=== PATIENT | male | born 1960 | race Caucasian/White ===

== ENCOUNTER → 2016-12-14 | Outpatient (CLI) | payer OTHER ==
[~2016-12-14] MED LIST: ACIDOPHILUS PROB1 MG PO; CASC450C PO; CLON0.5T60 PO; FURO20TA4 PO; LEVO500T69 PO; LVT.088T PO; LVT.1T PO; MELO-195 PO; MULT-974 PO; MUPI1OIN5 NS; OXYC-12 PO; PHEN37.53 PO; POTA10CA43 PO; SULF-222 PO; SULF1TAB38 PO; TEST90SO TD; TOPI25TA2 PO; TRAM50TA2 PO; [UNRECOGNIZED DRUG - CODE] TOP
--- NOTE | 2016-12-14 19:01 | Diagnostic Imaging Report ---
Three views of the left heel. INDICATION: Heel pain. FINDINGS: There is no fracture or dislocation identified. No significant spur formation is seen. No radiopaque foreign body. The soft tissues appear unremarkable. IMPRESSION: Unremarkable exam. Dictated by: Dictated on workstation # [id number]
== END ==
LOC: RAD 13:00
PROVIDERS: ATTEND Nurse Practitioner Family
DX: M25.572 Pain in left ankle and joints of left foot (principal)
CPT/HCPCS: 73650

== ENCOUNTER 2017-08-14 08:39 | Day surgery (SDC) | payer OTHER ==
[~2017-08-14] VITALS: Ht 182.9 cm; Wt 115.7 kg
[~2017-08-14 08:39] MED LIST changes: +AROM1FL. PO; +BUSP5TAB59 PO; +DIPH25CA79 PO; +LAMO150T3 PO; +LEVO100T7 PO; +LIRA3PEN SQ; +MULT-35 PO; +PHEN-483 PO
[2017-08-14] MEDS ORDERED: NS IV 500 ML 500 ML IV ONE (09:00)
[2017-08-14] MEDS ORDERED: fentaNYL INJECTION 100 MCG/2 ML AMP ONE (09:22)
[2017-08-14] MEDS ORDERED: MIDAZOLAM 2 MG/2 ML (VERSED) VIAL ONE ×4 (09:22)
[2017-08-14] MEDS ORDERED: NS IV 500 ML 500 ML ONE (09:25)
--- NOTE | 2017-08-14 09:34 | History & Physicial ---
History of Present Illness History of Present Illness Reason for visit/HPI to undergo screening colonoscopy. Denies any family history of colon cancer. Date of Admission 08/14/17 Date Seen by Provider: Aug 14, 2017 Time Seen by Provider: 08:55 I consulted on this patient on 08/14/17 09:32 Attending Physician Antoine Sahni MD Admitting Physician Kofi Waite DO Consult Allergies and Home Medications Allergies Coded Allergies: amoxicillin (Verified Allergy, Severe, ANAPHYLAXIS, 08/09/17) hydrocodone (Verified Adverse Reaction, Intermediate, "LOOPY", 08/09/17) Home Medications Aromatic Cascara Fluid Extract 1 Ml Fl.extract, 450 MG PO HS, (Reported) Buspirone HCl 5 Mg Tablet, 5 MG PO BID, (Reported) Diphenhydramine HCl 25 Mg Capsule, 25 MG PO HS, (Reported) Lamotrigine 150 Mg Tablet, 150 MG PO HS, (Reported) Levothyroxine Sodium 100 Mcg Tablet, 100 MCG PO DAILY, (Reported) Liraglutide 3 Mg/0.5 Ml Pen.injctr, 3 MG SQ DAILY, (Reported) Multivitamin 1 Each Tablet, 1 EACH PO DAILY, (Reported) Phentermine HCl 37.5 Mg Capsule, 37.5 MG PO DAILY, (Reported) Tramadol HCl 50 Mg Tablet, 50 MG PO BID, (Reported) Patient Home Medication List Home Medication List Reviewed: Yes Past Fyskvif-Omuing-Epkclu Hx Patient Social History Marrital Status: Employed/Student: self-employed Recent Foreign Travel: No Contact w/other who traveled: No Recent Hopitalizations: No Seasonal Allergies Seasonal Allergies: No Respiratory No Cardiovascular No Neurological No Reproductive System Hx Reproductive Disorders: No Sexually Transmitted Disease: No HIV/AIDS: No Genitourinary Yes Prostate Problems Gastrointestinal Yes Chronic Constipation Musculoskeletal Arthritis Endocrine History of Endocrine Disorders: Yes Endocrine Disorders: Hypothyroidsim HEENT Loss of Vision: Denies Hearing Impairment: Denies Psychosocial Behavioral Health Disorders: Anxiety, Depression Integumentary Skin/Integumentary Disorders: Psoriasis Blood Transfusions Adverse Reaction to a Blood Tr: No (N/A) Constitutional: no symptoms reported EENTM: no symptoms reported Respiratory: no symptoms reported Cardiovascular: no symptoms reported Gastrointestinal: no symptoms reported Genitourinary: no symptoms reported, see HPI Musculoskeletal: joint pain Skin: no symptoms reported Psychiatric/Neurological: No Symptoms Reported Physical Exam Vital Signs Capillary Refill : General Appearance: No Apparent Distress Neck: Normal Inspection Respiratory: Lungs Clear Cardiovascular: Regular Rate, Rhythm Gastrointestinal: Non Tender, Soft Rectal: Deferred Extremity: Normal Inspection Neurologic/Psychiatric: Alert, Oriented x3 Skin: Warm/Dry Assessment/Plan Assessment and Plan gentleman here to undergo screening colonoscopy. Discussed in detail. Problems: Admission Diagnosis Admission Status: Other (Outpt Proc) ANTOINE SAHNI MD Aug 14, 2017 9:34 am
--- NOTE | 2017-08-14 09:35 | Conscious Sedation/ASA ---
Conscious Sedation Pre-Proced Time Reviewed: 08:55 ASA Class: 2 Airway Mallampati Classification: (lytton appropriate class) I. II. III, IV Lungs Heart ASA score ASA 1: a normal healthy patient ASA 2: a patient with a mild systemic disease (mid diabetes, controlled hypertension, obesity ASA 3: a patient with a severe systemic disease that limits activity (angina , COPD, prior Myocardial infarction) ASA 4: a patient with an incapacitating disease that is a constant threat to life (CHF, renal failure) ASA 5: a moribund patient not expected to survive 24 hrs. (ruptured aneurysm) ASA 6: a declared brain patient whose organs are being harvested. For emergent operations, add the letter E after the classification Grade 2 Sedation Plan: Discussed options with patient/fam Note The patient is an appropriate candidate to undergo the planned procedure, sedation, and anesthesia. The patient immediately re-assessed prior to indication. ANTOINE SAHNI MD Aug 14, 2017 9:35 am
[2017-08-14 09:40] VITALS: BP 135/84
[2017-08-14] MEDS: MIDAZOLAM 2 MG/2 ML (VERSED) VIAL IVP PRN ×3 (09:50→10:00)
[2017-08-14] MEDS: fentaNYL INJECTION 100 MCG/2 ML AMP IVP PRN ×2 (09:51→09:58)
--- NOTE | 2017-08-14 10:11 | Endo Procedure Record ---
Endo Procedure Report Date of Procedure Last Colonoscopy: No Aug 14, 2017 Surgeon (s) ANTOINE SAHNI MD Post Procedure/Op Diagnosis Melanosis coli Procedure Performed Colonoscopy to cecum Description of Procedure Anesthesia Type: Conscious Sedation Specimen(s) collected/removed None Description of the Procedure Indication for the procedure: This gentleman came in for screening colonoscopy. He denied any family history of colon cancer. Informed consent was obtained after reviewing the procedure in detail. Description of procedure: He was placed in left lateral decubitus position and his vital signs were monitored. Conscious sedation was achieved using Versed and fentanyl. Digital rectal examination was unremarkable. The colonoscope was then introduced into the rectum and advanced all the way up to the cecum The quality of bowel preparation was rather suboptimal. I was however able to irrigate the mucosa, suction liquid fecal material and complete the examination. The scope was then withdrawn slowly and the mucosa examined in a systematic fashion. Finding: Diffuse melanosis coli, possibly due to chronic laxative use. No polyps were found He tolerated the procedure well and was taken back to the nursing area in a stable condition. Impressio: Screening colonoscopy. No polyps. No family history. Incidental melanosis. Recommend screening examination in 10 years. Copies To: ANJANA PEREIRA XAVIER M MD Aug 14, 2017 10:11 am
--- NOTE | 2017-08-14 10:12 | Discharge Inst-Simple/Standard ---
Discharge Inst-Standard Discharge Medications New, Converted or Re-Newed RX: Other Patient Instructions/Follow Up Plan of Care/Instructions/FU: Repeat colonoscopy in 10 years Activity as Tolerated: Yes Discharge Diet: No Restrictions ANTOINE SAHNI MD Aug 14, 2017 10:12 am
[2017-08-14 10:30] VITALS: BP 120/78
[2017-08-14 10:50] VITALS: BP 139/72
[2017-08-14 13:42] VITALS: BP 139/72
== END 2017-08-14 11:00 | disposition home or self-care (01) ==
LOC: ENDO 08:39
PROVIDERS: ATTEND Surgery
DX: Z12.11 Encounter for screening for malignant neoplasm of colon (principal); K63.89 Other specified diseases of intestine; Z88.1 Allergy status to other antibiotic agents; Z88.5 Allergy status to narcotic agent; Z79.899 Other long term (current) drug therapy; E03.9 Hypothyroidism, unspecified; F41.9 Anxiety disorder, unspecified; F32.9 Major depressive disorder, single episode, unspecified

== ENCOUNTER → 2017-10-05 | Outpatient (CLI) | payer OTHER ==
--- NOTE | 2017-10-05 17:30 | Diagnostic Imaging Report ---
EXAMINATION: Left foot at 03:10 p.m. INDICATION: Foot pain. FINDINGS: Three views were obtained. There is no fracture, dislocation, or acute bony abnormality evident. The calcaneus appears similar to the prior left calcaneus exam of 12/14/2016. The soft tissues are unremarkable. IMPRESSION: There is no evidence for an acute bony abnormality. Dictated by: Dictated on workstation # [id number]
== END ==
LOC: RAD 14:36
PROVIDERS: ATTEND Nurse Practitioner Family
DX: M79.671 Pain in right foot (principal); M79.89 Other specified soft tissue disorders
CPT/HCPCS: 73630

== ENCOUNTER → 2018-04-12 | Outpatient (CLI) | payer OTHER ==
--- NOTE | 2018-04-12 15:43 | Diagnostic Imaging Report ---
PROCEDURE: CT sinuses without contrast TECHNIQUE: Multiple contiguous axial images were obtained through the sinuses without the use of intravenous contrast. Coronal and sagittal reformations were then performed. INDICATION: Chronic sinusitis and congestion. FINDINGS: The frontal sinuses are clear. Ethmoid air cells and sphenoid sinus are clear. Bilateral maxillary sinuses are clear apart from minimal mucosal thickening of the right maxillary sinus. No air-fluid levels are identified. No bony destructive changes are seen. There is some nasal septal deviation to the right. Ostiomeatal complexes are patent. The mastoid air cells are well aerated. IMPRESSION: Minimal right maxillary sinus mucosal disease. Study is otherwise unremarkable. Dictated by: Dictated on workstation # [id number]
== END ==
LOC: RAD 14:48
PROVIDERS: ATTEND Otolaryngology Otolaryngology/Facial Plastic Surgery
DX: J32.0 Chronic maxillary sinusitis (principal)
CPT/HCPCS: 70486

== ENCOUNTER → 2018-04-18 | Outpatient (CLI) | payer OTHER ==
--- NOTE | 2018-04-18 15:20 | Diagnostic Imaging Report ---
PROCEDURE: MR imaging left lower extremity without contrast. TECHNIQUE: Multiplanar, multisequence non contrast enhanced MR imaging of the left lower extremity was accomplished. INDICATION: Foot pain and swelling. COMPARISON: There are no previous MRI examinations available for comparison. The plain film examination of the left foot performed on 10/05/2017 failed to show any sign of an acute abnormality. FINDINGS: Report that the patient has pain over the midfoot. A marker was placed over the area of concern. This is near the first tarsometatarsal junction. There is no abnormal signal arising from the osseous structures of the first tarsometatarsal joint. However there is generalized increased signal throughout the base of the second metatarsal on the STIR long axis series. This finding does suggest bone edema and may be related to a contusion. The Lisfranc joint itself seems to be intact but there does appear to be soft tissue edema between the bases of the first and second metatarsals. There is no abnormal signal within the base of the second metatarsal on the T1 series to suggest osteomyelitis. There is no other abnormal signal arising from the osseous structures to suggest bone edema or a fracture. The major ligaments and tendons where visualized are intact. There is no soft tissue mass or abscess evident. IMPRESSION: 1. There is altered signal within the base of the second metatarsal. This does suggest bone edema and may be related to a recent contusion. The Lisfranc joint does not appear to be disrupted but there is soft tissue edema between the first and second metatarsal bases. 2. There is no acute bony abnormality noted otherwise. 3. The major ligaments and tendons are intact. 4. The results were discussed with Nida DUMONT. Dictated by: Dictated on workstation # [id number]
== END ==
LOC: RAD 13:58
PROVIDERS: ATTEND Internal Medicine
DX: M79.89 Other specified soft tissue disorders (principal)

== ENCOUNTER 2018-07-09 06:05 | Outpatient (CLI) | payer OTHER ==
[~2018-07-09] VITALS: Ht 182.9 cm; Wt 129.9 kg
[2018-07-09 15:19] VITALS: BP 138/87
[2018-07-09 16:09] LABS: BASOPHILS % (AUTO) 0 % (0-10); EOSINOPHILS # (AUTO) 0.4 10^3/uL (0.0-0.3); EOSINOPHILS % (AUTO) 4 % (0-10); HEMATOCRIT 45 % (40-54); HEMOGLOBIN 15.2 G/DL (13.3-17.7); LYMPHOCYTES # (AUTO) 2.5 X 10^3 (1.0-4.0); LYMPHOCYTES % (AUTO) 29 % (12-44); MEAN CORPUSCULAR HEMOGLOBIN 30 PG (25-34); MEAN CORPUSCULAR HGB CONC 34 G/DL (32-36); MEAN CORPUSCULAR VOLUME 87 FL (80-99); MEAN PLATELET VOLUME 10.5 FL (7.4-10.4); MONOCYTES # (AUTO) 0.5 X 10^3 (0.0-1.0); MONOCYTES % (AUTO) 6 % (0-12); NEUTROPHILS # (AUTO) 5.3 X 10^3 (1.8-7.8); NEUTROPHILS % (AUTO) 61 % (42-75); PLATELET COUNT 244 10^3/uL (130-400); RED CELL DISTRIBUTION WIDTH 13.4 % (10.0-14.5); WHITE BLOOD COUNT 8.7 10^3/uL (4.3-11.0)
[2018-07-09 16:25] LABS: BUN/CREATININE RATIO 16; CALCIUM 9.5 MG/DL (8.5-10.1); CARBON DIOXIDE 25 MMOL/L (21-32); CHLORIDE 106 MMOL/L (98-107); CREATININE SERUM 0.75 MG/DL (0.60-1.30); GFR ESTIMATED > 60; GLUCOSE 91 MG/DL (70-105); POTASSIUM 3.9 MMOL/L (3.6-5.0); SODIUM 140 MMOL/L (135-145)
--- NOTE | 2018-07-09 16:40 | Diagnostic Imaging Report ---
INDICATION: Preoperative evaluation prior to septoplasty. PA and lateral views of the chest are obtained. There is no previous study for comparison. FINDINGS: Heart size is within normal limits. Pulmonary vascularity is also unremarkable. There is mild left basilar atelectasis and/or scarring. No pneumothorax or significant pleural fluid is identified. Surgical findings are present in the right shoulder. IMPRESSION: Mild left basilar atelectasis and/or scarring without other evidence of acute abnormality in the chest. Correlation with older studies would be useful. Dictated by: Dictated on workstation # [id number]
== END 2018-07-09 16:00 ==
LOC: PREOP 06:05
PROVIDERS: ATTEND Otolaryngology Otolaryngology/Facial Plastic Surgery
DX: Z01.810 Encounter for preprocedural cardiovascular examination (principal); Z01.811 Encounter for preprocedural respiratory examination; Z01.812 Encounter for preprocedural laboratory examination; Z11.2 Encounter for screening for other bacterial diseases; J34.2 Deviated nasal septum; J34.3 Hypertrophy of nasal turbinates
CPT/HCPCS: 36415; 71046; 80048; 85025; 87081; 93005

== ENCOUNTER 2018-07-12 06:45 | Day surgery (SDC) | payer OTHER ==
[~2018-07-12] VITALS: Ht 182.9 cm; Wt 129.9 kg
[2018-07-12 07:00] VITALS: BP 126/73
--- OUTSIDE RECORDS SUMMARY | 2018-07-12 07:04 | XMS REPORT | Clinical Summary ---
Author Author [facility] Organization [facility] Address Unknown Phone Unavailable Care Team Providers Care Reo Asset Manager Name Role Phone Rio Martin MD Unavailable Markus Pulido MD Unavailable Kofi Waite MD PCP Shilpi Rubio MD Unavailable Unavailable Source Comments Some departments are not documenting in the electronic medical record. If you do not see the information that you expected, contact Release of Information in the Health Information Management department at [phone] for further assistance in locating additional records.[facility] Allergies Comments Active Allergy Reactions Severity Noted Date Propoxyphene UNKNOWN 03/13/2013 N-Acetaminophen Penicillins UNKNOWN 03/13/2013 Medications End Date Status Medication Sig Dispensed Refills Start Date Active levothyroxine (SYNTHROID) Take 88 mcg 0 88 mcg tablet by mouth daily. Active phentermine(+) 37.5 mg Take 37.5 mg 0 tablet by mouth every morning. Active testosterone(+) (AXIRON) Apply 60 mg 0 30 mg/1.5 mL per to top of actuation topical skin as solution directed every morning. Follow application instructions in medication guide. Active NAPROXEN SODIUM (ALEVE Take by 0 PO) mouth. Active traMADol (ULTRAM) 50 mg Take 50 mg by 0 tablet mouth every 6 hours as needed for Pain. Active IBUPROFEN PO Take by 0 mouth. Active CASCARA SAGRADA PO Take by 0 mouth. 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 Last Filed Vital Signs Time Taken Vital Sign Reading 10/09/2014 9:58 AM CDT Blood Pressure 139/86 10/09/2014 9:58 AM CDT Pulse 80 08/28/2014 1:52 PM CDT Temperature 36.7 C (98 F) 08/28/2014 1:52 PM CDT Respiratory Rate 20 - Oxygen Saturation - - Inhaled Oxygen - Concentration 10/09/2014 9:58 AM CDT Weight 127 kg (280 lb) 10/09/2014 9:58 AM CDT Height 185.4 cm (6' 1") 10/09/2014 9:58 AM CDT Body Mass Index 36.94 Plan of Treatment Health Maintenance Due Date Last Done Comments HEPATITIS C SCREENING 1961 PHYSICAL (COMPREHENSIVE) 1968 EXAM HIV SCREENING 1976 DTAP/TDAP VACCINES (1 - 12/07/1979 Tdap) COLORECTAL CANCER 12/07/2011 SCREENING SHINGLES RECOMBINANT 12/07/2011 VACCINE (1 of 2) INFLUENZA VACCINE 2018 Results Not on filefrom Last 3 Months Insurance Payer Benefit Subscriber ID Type Phone Address Plan / Group COVENTRY COVENTRY xxxxxxxxxxx HMO HMO/POS [facility] [address] [facility] (Home) [place] [phone] Advance Directives Patient has advance care planning documents on file. For more information, please contact: [facility] [address] [place] [address]
--- OUTSIDE RECORDS SUMMARY | 2018-07-12 07:05 | XMS REPORT | Continuity of Care Document ---
Author Author [facility] Organization [facility] Address Unknown Phone Unavailable Allergies Active Description Code Type Severity Reaction Onset Reported/Identified Relationship to Patient Clinical Status Yes amoxicillin [id number] Drug Allergy Severe N/A 04/01/2012 Yes hydrocodone [id number] Drug Allergy Moderate CAN TAKE PERCOC 12/11/2012 Yes amoxicillin [id number] Drug Allergy Severe ANAPHYLAXIS 08/09/2017 Yes hydrocodone [id number] Drug Allergy Moderate "LOOPY" 08/09/2017 Medications There is no data. Problems Date Dx Coded Attending Type Code Diagnosis Diagnosed By 04/01/2012 Ot 681.00 04/01/2012 Ot 883.1 04/01/2012 Ot 959.5 04/01/2012 Ot E000.8 04/01/2012 Ot E849.0 04/01/2012 Ot E920.8 12/12/2012 ANJANA PEREIRA DO Ot 041.11 12/12/2012 ANJANA PEREIRA DO Ot 244.9 12/12/2012 ANJANA PEREIRA DO Ot 257.2 12/12/2012 ANJANA PEREIRA DO Ot 278.00 12/12/2012 ANJANA PEREIRA DO Ot 300.00 12/12/2012 ANJANA PEREIRA DO Ot 682.0 12/12/2012 ANJANA PEREIRA DO Ot 715.90 12/12/2012 ANJANA PEREIRA DO Ot V12.04 12/12/2012 ANJANA PEREIRA DO Ot V85.34 07/31/2014 Ot 729.1 07/31/2014 Ot 794.4 07/31/2014 Ot 729.1 07/31/2014 Ot 794.4 01/29/2015 Ot 729.1 01/29/2015 Ot 794.4 02/10/2015 RONN PEREIRA Ot 722.52 03/07/2015 FANTA ROBERTS DO Ot M54.2 03/20/2015 FANTA ROBERTS DO Ot M54.2 05/11/2015 FANTA ROBERTS DO Ot M54.2 05/22/2015 FANTA ROBERTS DO Ot M54.2 06/22/2015 FANTA ROBERTS DO Ot M54.5 08/09/2015 FANTA ROBERTS DO Ot M54.5 LOW BACK PAIN 03/15/2016 PEREIRA DO, ANJANA Dela Cruz Ot F32.9 MAJOR DEPRESSIVE DISORDER, SINGLE EPISOD 03/15/2016 PEREIRA DO, ANJANA Dela Cruz Ot R41.82 ALTERED MENTAL STATUS, UNSPECIFIED 03/15/2016 PEREIRA DO, ANJANA J Ot R51 HEADACHE 03/17/2016 PEREIRA DO, ANJANA Dela Cruz Ot G47.10 HYPERSOMNIA, UNSPECIFIED 03/17/2016 PEREIRA DO, ANJANA J Ot G47.10 HYPERSOMNIA, UNSPECIFIED 03/23/2016 PEREIRA DO, ANJANA Dela Cruz Ot F32.9 MAJOR DEPRESSIVE DISORDER, SINGLE EPISOD 03/23/2016 PEREIRA DO, ANJANA Dela Cruz Ot R41.82 ALTERED MENTAL STATUS, UNSPECIFIED 03/23/2016 PEREIRA DO, ANJANA J Ot R51 HEADACHE 04/14/2016 PEREIRA DO, ANJANA J Ot F32.9 MAJOR DEPRESSIVE DISORDER, SINGLE EPISOD 04/14/2016 PEREIRA DO, ANJANA J Ot R41.82 ALTERED MENTAL STATUS, UNSPECIFIED 04/14/2016 PEREIRA DO, ANJANA J Ot R51 HEADACHE 05/18/2016 PEREIRA DO, ANJANA J Ot F32.9 MAJOR DEPRESSIVE DISORDER, SINGLE EPISOD 05/18/2016 PEREIRA DO, ANJANA J Ot R41.82 ALTERED MENTAL STATUS, UNSPECIFIED 05/18/2016 PEREIRA DO, ANJANA J Ot R51 HEADACHE 05/18/2016 PEREIRA DO, ANJANA J Ot F32.9 MAJOR DEPRESSIVE DISORDER, SINGLE EPISOD 05/18/2016 PEREIRA DO, ANJANA J Ot R41.82 ALTERED MENTAL STATUS, UNSPECIFIED 05/18/2016 PEREIRA DO, ANJANA J Ot R51 HEADACHE 08/22/2016 PEREIRA DO, ANJANA Dela Cruz Ot F32.9 MAJOR DEPRESSIVE DISORDER, SINGLE EPISOD 08/22/2016 PEREIRA DO, ANJANA J Ot R41.82 ALTERED MENTAL STATUS, UNSPECIFIED 08/22/2016 PEREIRA DO, ANJANA J Ot R51 HEADACHE 02/16/2017 KELLI KOENIG ANJANA Jose De Jesus Ot F32.9 MAJOR DEPRESSIVE DISORDER, SINGLE EPISOD 02/16/2017 KELLI KOENIG ANJANA Jose De Jesus Ot R41.82 ALTERED MENTAL STATUS, UNSPECIFIED 02/16/2017 KELLI KOENIG ANJANA Jose De Jesus Ot R51 HEADACHE 02/16/2017 KELLIRONN STEAMER BLOCKER Ot M25.572 PAIN IN LEFT ANKLE AND JOINTS OF LEFT FO 08/08/2017 KAITLYN GARG, ANTOINE Minor Ot Z01.818 ENCOUNTER FOR OTHER PREPROCEDURAL EXAMIN 08/08/2017 ANTOINE SAHNI MD Ot Z12.11 ENCOUNTER FOR SCREENING FOR MALIGNANT NE 08/09/2017 ANTOINE SAHNI MD M Ot Z01.818 ENCOUNTER FOR OTHER PREPROCEDURAL EXAMIN 08/09/2017 ANTOINE SAHNI MD M Ot Z12.11 ENCOUNTER FOR SCREENING FOR MALIGNANT NE 08/09/2017 ANTOINE SAHNI MD M Ot Z01.818 ENCOUNTER FOR OTHER PREPROCEDURAL EXAMIN 08/09/2017 ANTOINE SAHNI MD M Ot Z12.11 ENCOUNTER FOR SCREENING FOR MALIGNANT NE 08/11/2017 ANTOINE SAHNI MD M Ot Z01.818 ENCOUNTER FOR OTHER PREPROCEDURAL EXAMIN 08/11/2017 ANTOINE SAHNI MD M Ot Z12.11 ENCOUNTER FOR SCREENING FOR MALIGNANT NE 08/14/2017 ANTOINE SAHNI MD M Ot E03.9 HYPOTHYROIDISM, UNSPECIFIED 08/14/2017 ANTOINE SAHNI MD Ot F32.9 MAJOR DEPRESSIVE DISORDER, SINGLE EPISOD 08/14/2017 KAITLYN GARG, ANTOINE Minor Ot F41.9 ANXIETY DISORDER, UNSPECIFIED 08/14/2017 KAITLYN GARG, ANTOINE M Ot K63.89 OTHER SPECIFIED DISEASES OF INTESTINE 08/14/2017 ANTOINE SAHNI MD M Ot Z12.11 ENCOUNTER FOR SCREENING FOR MALIGNANT NE 08/14/2017 ANTOINE SAHNI MD Ot Z79.899 OTHER HALFWAY (CURRENT) DRUG THERAPY 08/14/2017 ANTOINE SAHNI MD M Ot Z88.1 ALLERGY STATUS TO OTHER ANTIBIOTIC AGENT 08/14/2017 ANTOINE SAHNI MD Ot Z88.5 ALLERGY STATUS TO NARCOTIC AGENT STATUS 08/16/2017 ANTOINE SAHNI MD Ot E03.9 HYPOTHYROIDISM, UNSPECIFIED 08/16/2017 KAITLYN GARG, ANTOINE Minor Ot F32.9 MAJOR DEPRESSIVE DISORDER, SINGLE EPISOD 08/16/2017 KAITLYN GARG, ANTOINE Minor Ot F41.9 ANXIETY DISORDER, UNSPECIFIED 08/16/2017 KAITLYN GARG, ANTOINE Minor Ot K63.89 OTHER SPECIFIED DISEASES OF INTESTINE 08/16/2017 KAITLYN GARG, ANTOINE Minor Ot Z12.11 ENCOUNTER FOR SCREENING FOR MALIGNANT NE 08/16/2017 KAITLYN GARG, ANTOINE Minor Ot Z79.899 OTHER HALFWAY (CURRENT) DRUG THERAPY 08/16/2017 KAITLYN GARG, ANTOINE Minor Ot Z88.1 ALLERGY STATUS TO OTHER ANTIBIOTIC AGENT 08/16/2017 KAITLYN GARG, ANTOINE Minor Ot Z88.5 ALLERGY STATUS TO NARCOTIC AGENT STATUS 10/06/2017 RONN PEREIRA STEAM[employer] BLOCK[employer] Ot M79.671 PAIN IN RIGHT FOOT 10/06/2017 RONN PEREIRA L [employer] Ot M79.89 OTHER SPECIFIED SOFT TISSUE DISORDERS 04/10/2018 ANJANA PEREIRA DO Ot F32.9 MAJOR DEPRESSIVE DISORDER, SINGLE EPISOD 04/10/2018 ANJANA PEREIRA DO Ot R41.82 ALTERED MENTAL STATUS, UNSPECIFIED 04/10/2018 ANJANA PEREIRA DO Ot R51 HEADACHE 04/10/2018 RONN PEREIRA [employer] Ot M25.572 PAIN IN LEFT ANKLE AND JOINTS OF LEFT FO 04/10/2018 RONN PEREIRA [employer]AMER [employer] Ot M79.671 PAIN IN RIGHT FOOT 04/10/2018 LINNETTE PEREIRAIA Jeana [employer] BLOCK[employer] Ot M79.89 OTHER SPECIFIED SOFT TISSUE DISORDERS 04/16/2018 BRANDON GARG, MARV Diaz Ot J32.0 CHRONIC MAXILLARY SINUSITIS 04/18/2018 ANJANA PEREIRA DO Ot F32.9 MAJOR DEPRESSIVE DISORDER, SINGLE EPISOD 04/18/2018 ANJANA PEREIRA DO Ot R41.82 ALTERED MENTAL STATUS, UNSPECIFIED 04/18/2018 ANJANA PEREIRA DO Ot R51 HEADACHE 04/18/2018 RONN PEREIRA [employer]AMER BLOCK[employer] Ot M25.572 PAIN IN LEFT ANKLE AND JOINTS OF LEFT FO 04/18/2018 RONN PEREIRA L [employer] Ot M79.671 PAIN IN RIGHT FOOT 04/18/2018 RONN PEREIRA Ot M79.89 OTHER SPECIFIED SOFT TISSUE DISORDERS 04/18/2018 MARV TAYLOR MD, Ot J32.0 CHRONIC MAXILLARY SINUSITIS 04/19/2018 ANJANA PEREIRA DO Ot M79.89 OTHER SPECIFIED SOFT TISSUE DISORDERS 06/04/2018 ANJANA PEREIRA DO Ot F32.9 MAJOR DEPRESSIVE DISORDER, SINGLE EPISOD 06/04/2018 ANJANA PEREIRA DO Ot R41.82 ALTERED MENTAL STATUS, UNSPECIFIED 06/04/2018 ANJANA PEREIRA DO Ot R51 HEADACHE 06/04/2018 RONN PEREIRA Ot M25.572 PAIN IN LEFT ANKLE AND JOINTS OF LEFT FO 06/04/2018 RONN PEREIRA Ot M79.671 PAIN IN RIGHT FOOT 06/04/2018 RONN PEREIRA Ot M79.89 OTHER SPECIFIED SOFT TISSUE DISORDERS 06/04/2018 MARV TAYLOR MD, Ot J32.0 CHRONIC MAXILLARY SINUSITIS 06/04/2018 ANJANA PEREIRA DO Ot M79.89 OTHER SPECIFIED SOFT TISSUE DISORDERS 07/10/2018 MARV TAYLOR MD Ot J34.2 DEVIATED NASAL SEPTUM 07/10/2018 MARV TAYLOR MD Ot J34.3 HYPERTROPHY OF NASAL TURBINATES 07/10/2018 MARV TAYLOR MD Ot Z01.810 ENCOUNTER FOR PREPROCEDURAL CARDIOVASCUL 07/10/2018 MARV TAYLOR MD Ot Z01.811 ENCOUNTER FOR PREPROCEDURAL RESPIRATORY 07/10/2018 MARV TAYLOR MD Ot Z01.812 ENCOUNTER FOR PREPROCEDURAL LABORATORY E 07/10/2018 MARV TAYLOR MD Ot Z11.2 ENCOUNTER FOR SCREENING FOR OTHER BACTER Procedures There is no data. Results Test Result Range Complete blood count (CBC) with automated white blood cell (WBC) differential - 07/09/18 15:45 Blood leukocytes automated count (number/volume) 8.7 10*3/uL 4.3-11.0 Blood erythrocytes automated count (number/volume) 5.15 10*6/uL 4.35-5.85 Venous blood hemoglobin measurement (mass/volume) 15.2 g/dL 13.3-17.7 Blood hematocrit (volume fraction) 45 % 40-54 Automated erythrocyte mean corpuscular volume 87 [foz_us] 80-99 Automated erythrocyte mean corpuscular hemoglobin (mass per erythrocyte) 30 pg 25-34 Automated erythrocyte mean corpuscular hemoglobin concentration measurement ( mass/volume) 34 g/dL 32-36 Automated erythrocyte distribution width ratio 13.4 % 10.0-14.5 Automated blood platelet count (count/volume) 244 10*3/uL 130-400 Automated blood platelet mean volume measurement 10.5 [foz_us] 7.4-10.4 Automated blood neutrophils/100 leukocytes 61 % 42-75 Automated blood lymphocytes/100 leukocytes 29 % 12-44 Blood monocytes/100 leukocytes 6 % 0-12 Automated blood eosinophils/100 leukocytes 4 % 0-10 Automated blood basophils/100 leukocytes 0 % 0-10 Blood neutrophils automated count (number/volume) 5.3 10*3 1.8-7.8 Blood lymphocytes automated count (number/volume) 2.5 10*3 1.0-4.0 Blood monocytes automated count (number/volume) 0.5 10*3 0.0-1.0 Automated eosinophil count 0.4 10*3/uL 0.0-0.3 Automated blood basophil count (count/volume) 0.0 10*3/uL 0.0-0.1 Whole blood basic metabolic panel - 07/09/18 15:45 Serum or plasma sodium measurement (moles/volume) 140 mmol/L 135-145 Serum or plasma potassium measurement (moles/volume) 3.9 mmol/L 3.6-5.0 Serum or plasma chloride measurement (moles/volume) 106 mmol/L 98-107 Carbon dioxide 25 mmol/L 21-32 Serum or plasma anion gap determination (moles/volume) 9 mmol/L 5-14 Serum or plasma urea nitrogen measurement (mass/volume) 12 mg/dL 7-18 Serum or plasma creatinine measurement (mass/volume) 0.75 mg/dL 0.60-1.30 Serum or plasma urea nitrogen/creatinine mass ratio 16 NRG Serum or plasma creatinine measurement with calculation of estimated glomerular filtration rate > NRG Serum or plasma glucose measurement (mass/volume) 91 mg/dL 70-105 Serum or plasma calcium measurement (mass/volume) 9.5 mg/dL 8.5-10.1 Methicillin resistant Staphylococcus aureus (MRSA) screening culture - 15:45 Methicillin resistant Staphylococcus aureus (MRSA) screening culture NEG NRG Encounters ACCT No. Visit Date/Time Discharge Status Pt. Type Provider Facility Loc./Unit Complaint [id number] 07/09/2018 06:05:00 07/09/2018 16:00:00 DIS Outpatient MARV TAYLOR MD [facility] PREOP SEPTOPLASTY, RED. INF. TURBINATES [id number] 05/03/2018 10:15:00 05/03/2018 23:59:59 CLS Preadmit MARV TAYLOR MD [facility] SDC DEVIATED SEPTUM, CHRONIC HYPERTROPHY [id number] 04/18/2018 13:58:00 04/18/2018 23:59:59 CLS Outpatient ANJANA PEREIRA DO [facility] RAD LEFT FLANK PAIN, SWELLING [id number] 04/12/2018 14:48:00 04/12/2018 23:59:59 CLS Outpatient MARV TAYLOR MD [facility] RAD CHRONIC SINUSITIS, CONGESTION [id number] 04/06/2018 08:41:00 04/06/2018 23:59:59 CLS Preadmit ANJANA PEREIRA DO [facility] RAD LEFT FOOT PAIN, SWELLING [id number] 10/05/2017 14:36:00 10/05/2017 23:59:59 CLS Outpatient RONN PEREIRA [facility] RAD SWELLING LEFT FOOT [id number] 08/14/2017 08:39:00 08/14/2017 11:00:00 DIS Outpatient ANTOINE SAHNI MD [facility] ENDO SCREENING [id number] 08/09/2017 10:00:00 08/09/2017 10:21:00 DIS Outpatient ANTOINE SAHNI MD [facility] PREOP COLONOSCOPY [id number] 03/14/2017 15:14:00 03/14/2017 23:59:59 CLS Preadmit RONN PEREIRA [facility] RAD THYROMEGALY [id number] 12/14/2016 13:00:00 12/14/2016 23:59:59 CLS Outpatient RONN PEREIRA [facility] RAD HEEL PAIN [id number] 03/17/2016 10:27:00 03/17/2016 10:36:00 DIS Outpatient ANJANA PEREIRA DO [facility] SLEEP OBSERVED APNEA, HYPERSOMNIA [id number] 03/14/2016 07:42:00 03/14/2016 23:59:59 CLS Outpatient ANJANA PEREIRA DO [facility] RAD R41.82 [id number] 07/03/2015 08:56:00 07/03/2015 23:59:59 CLS Outpatient FANTA ROBERTS DO [facility] REHAB LOW BACK PAIN [id number] 05/05/2015 08:42:00 05/11/2015 08:00:00 DIS Outpatient FANTA ROBERTS DO [facility] REHAB [id number] 01/29/2015 07:38:00 01/29/2015 23:59:59 CLS Outpatient RONN PEREIRA [facility] RAD [id number] 12/10/2012 11:19:00 12/12/2012 11:15:00 DIS Inpatient ANJANA PEREIRA DO [facility] SURGICAL [id number] 07/12/2018 08:15:00 MARIANNA TAYLOR MD, MARV Diaz [facility] SDC HYPERTROPHY INFERIOR TURBINATES [id number] 07/16/2014 17:17:00 Document Registration [id number] 04/01/2012 07:05:00 Document Registration
[2018-07-12] MEDS ORDERED: PHENYLEPHRINE 0.5% NASAL SPR (NEO-SYNEPHRINE) REG ONE (07:06)
[2018-07-12] MEDS ORDERED: MUPIROCIN 2% OINT 22 GM (BACTROBAN) TUBE ONE (07:06)
[2018-07-12] MEDS ORDERED: COCAINE HCL 4% 2 ML SYR ONE (07:06)
[2018-07-12] MEDS ORDERED: LIDOCAINE/EPI 1%-1:100,000 (XYLOCAINE) 20ML ONE (07:07)
[2018-07-12] MEDS ORDERED: LACTATED RINGERS 1,000 ML IV PRN (07:19)
[2018-07-12] MEDS ORDERED: LEVOFLOXACIN 500 MG/100 ML IV 100 ML IV ONE (07:30)
--- NOTE | 2018-07-12 07:51 | Progress Note-Pre Operative ---
Pre-Operative Progress Note H&P Reviewed The H&P was reviewed, patient examined and no changes noted. Date Seen by Provider: Jul 12, 2018 Time Seen by Provider: 07:30 Date H&P Reviewed: Jul 12, 2018 Time H&P Reviewed: 07:30 Pre-Operative Diagnosis: Deviated Nasal Septum, Bilat Hyper of Inf Turbs MARV TAYLOR MD Jul 12, 2018 07:51
[2018-07-12] MEDS ORDERED: MIDAZOLAM 2 MG/2 ML (VERSED) VIAL ONE (08:07)
[2018-07-12] MEDS ORDERED: fentaNYL INJECTION 100 MCG/2 ML AMP ONE (08:07)
[2018-07-12] MEDS ORDERED: GLYCOPYRROLATE 0.2 MG/ML (ROBINUL) 2 ML VIAL ONE (09:14)
[2018-07-12] MEDS ORDERED: NEOSTIGMINE 1 MG/ML 5 ML SYRINGE ONE (09:14)
[2018-07-12] MEDS ORDERED: D5 1/2 NS W/KCL 20 MEQ/L 1,000 ML IV SCH (09:18)
--- NOTE | 2018-07-12 09:18 | Progress Note-Post Operative ---
Post-Operative Progess Note Surgeon (s)/Administrative Office Specialist (s) Surgeon MARV TAYLOR MD Administrative Office Specialist n/a Pre-Operative Diagnosis Deviated Nasal Septum, Bilat Hyper of Inf Turbs Post-Operative Diagnosis same Post-Op Procedure Note Date of Procedure: Jul 12, 2018 Name of Procedure Performed: Nasal Septoplasty, Bilat Red of Inf Turbs Description & Findings Description and Findings: n/a Anesthesia Type get Estimated Blood Loss minimal Packing none. Specimen(s) collected/removed nasal septum MARV TAYLOR MD Jul 12, 2018 09:18
[2018-07-12] MEDS ORDERED: proPOfol 200 MG/20 ML (DIPRIVAN) VIAL IV ONE (09:28)
[2018-07-12] MEDS ORDERED: LIDOCAINE PF 2% 5 ML (XYLOCAINE) VIAL ONE (09:28)
[2018-07-12] MEDS ORDERED: DEXAMETHASONE 10 MG/ML (DECADRON) 1 ML VIAL ONE (09:29)
[2018-07-12] MEDS ORDERED: ROCURONIUM 10 MG/ML 5 ML SYRINGE IV ONE (09:29)
[2018-07-12] MEDS ORDERED: ONDANSETRON 4 MG/2 ML (SDV) Z0FRAN ONE (09:29)
[2018-07-12] MEDS ORDERED: oxyCODONE/APAP 5/325MG (PERCOCET 5) TABLET PO PRN (09:30)
[2018-07-12] MEDS ORDERED: ACETAMINOPHEN 325 MG TABLET PO PRN (09:30)
[2018-07-12] MEDS ORDERED: PROMETHAZINE INJ 25 MG/ML (PHENERGAN) AMP IVP PRN (09:30)
[2018-07-12 10:20] VITALS: BP 108/71
[2018-07-12] MEDS ORDERED: oxyCODONE/APAP 5/325MG (PERCOCET 5) TABLET ONE (10:33)
[2018-07-12] MEDS ORDERED: SEVOFLURANE (ULTANE) 15 ML INHAL SOLN ONE (10:34)
[2018-07-12 10:50] VITALS: BP 99/70
[2018-07-12] MEDS ORDERED: OXYC-199 PO (10:51)
[2018-07-12] MEDS ORDERED: LEVO500T2 PO (10:51)
[2018-07-12 11:20] VITALS: BP 116/56
[2018-07-12 11:30] VITALS: BP 116/56
--- NOTE | 2018-07-12 12:52 | Anesthesia-General Post-Op ---
General Patient Condition Mental Status/LOC: Same as Preop Cardiovascular: Satisfactory Nausea/Vomiting: Absent Respiratory: Satisfactory Pain: Controlled Complications: Absent Post Op Complications Complications None Follow Up Care/Instructions Patient Instructions None needed. Anesthesia/Patient Condition Patient Condition Patient is doing well, no complaints, stable vital signs, no apparent adverse anesthesia problems. No complications reported per nursing. CRISTHIAN RO CRNA Jul 12, 2018 12:52
== END 2018-07-12 11:40 | disposition home or self-care (01) ==
LOC: SDC 06:45
PROVIDERS: ATTEND Otolaryngology Otolaryngology/Facial Plastic Surgery
DX: J34.3 Hypertrophy of nasal turbinates (principal); R09.81 Nasal congestion; J34.2 Deviated nasal septum; G47.33 Obstructive sleep apnea (adult) (pediatric); F32.9 Major depressive disorder, single episode, unspecified; F41.9 Anxiety disorder, unspecified; L40.9 Psoriasis, unspecified; Z79.899 Other long term (current) drug therapy
CPT/HCPCS: 88300

== ENCOUNTER → 2021-01-27 | Outpatient (CLI) | payer OTHER ==
[~2021-01-27] MED LIST changes: +LEVO500T2 PO; +OXYC-199 PO; +TRM50T PO
[2021-01-27 11:17] LABS: BASOPHILS % (AUTO) 0 % (0-10); EOSINOPHILS # (AUTO) 0.4 10^3/uL (0.0-0.3); EOSINOPHILS % (AUTO) 5 % (0-10); HEMATOCRIT 50 % (40-54); HEMOGLOBIN 16.3 g/dL (13.3-17.7); LYMPHOCYTES # (AUTO) 2.2 X 10^3 (1.0-4.0); LYMPHOCYTES % (AUTO) 25 % (12-44); MEAN CORPUSCULAR HEMOGLOBIN 29 pg (25-34); MEAN CORPUSCULAR HGB CONC 33 g/dL (32-36); MEAN CORPUSCULAR VOLUME 88 fL (80-99); MEAN PLATELET VOLUME 10.3 fL (9.0-12.2); MONOCYTES # (AUTO) 0.5 X 10^3 (0.0-1.0); MONOCYTES % (AUTO) 6 % (0-12); NEUTROPHILS # (AUTO) 5.8 X 10^3 (1.8-7.8); NEUTROPHILS % (AUTO) 64 % (42-75); PLATELET COUNT 221 10^3/uL (130-400)
[2021-01-27 11:29] LABS: ALBUMIN 4.4 GM/DL (3.2-4.5); BILIRUBIN,TOTAL 0.9 MG/DL (0.1-1.0); CALCIUM 9.6 MG/DL (8.5-10.1); CREATININE SERUM 0.67 MG/DL (0.60-1.30); MAGNESIUM 1.9 MG/DL (1.6-2.4); POTASSIUM 4.5 MMOL/L (3.6-5.0); TOTAL PROTEIN 7.7 GM/DL (6.4-8.2)
== END ==
LOC: LAB 10:17
PROVIDERS: ATTEND Nurse Practitioner Family
DX: Z00.01 Encounter for general adult medical examination with abnormal findings (principal); Z13.220 Encounter for screening for lipoid disorders; Z12.5 Encounter for screening for malignant neoplasm of prostate; E03.8 Other specified hypothyroidism; E29.1 Testicular hypofunction; M79.18 Myalgia, other site
CPT/HCPCS: 36415; 80053; 80061; 82607; 82670; 83735; 84153; 84402; 84403; 84439; 84443; 85025